=== PATIENT | male | born 1945 | race Caucasian/White ===

== ENCOUNTER 2018-06-22 10:06 | Day surgery (SDC) | payer MEDICARE, BC ==
[~2018-06-22 10:06] MED LIST: Acetaminophen TAB* 325 MG PO PRN; Buffered Lidocaine 0.9% SYRIN* 5 ML/SYR SYRINGE INTRADERM ONE
[2018-06-22] MEDS ORDERED: fentaNYL* 50 MCG/ML 2 ML VIAL (100 MCG VIAL) ONE (12:01)
[2018-06-22] MEDS ORDERED: Midazolam* 1 MG/ML 2 ML VIAL (2 MG) ONE ×2 (12:01→12:28)
[2018-06-22 13:00] VITALS: BP 149/75
[2018-06-22] MEDS ORDERED: Tetracaine 0.5% OPTH.SOL 4 ML* 1 DROP BTL ONE (13:49)
[2018-06-22] MEDS ORDERED: Cyclopentolate 1% OPTH.SOL* 2 ML BTL ONE (13:49)
[2018-06-22] MEDS ORDERED: Phenylephrine 2.5% OPTH.SOL* 2 ML BTL ONE (13:49)
[2018-06-22] MEDS ORDERED: Lidocaine 1%* 5 ML VIAL ONE (13:49)
[2018-06-22] MEDS ORDERED: Ketorolac 0.5% OPHTH (NF) 0.5 % 5 ML BTL ONE (13:49)
[2018-06-22] MEDS ORDERED: Neomycin/Polymy/Dex OPHTH.OIN* 3.5 GM ONE (13:49)
[2018-06-22] MEDS ORDERED: Tropicamide 1% OPTH.SOL* BTL ONE (13:49)
--- NOTE | 2018-06-23 04:19 | OP ---
DATE OF OPERATION: 06/22/18 - [facility] DATE OF : 49 SURGEON: Jared Murray MD SURVEYING CREW RODMAN: None. ANESTHESIA: Topical with intravenous sedation. PRE-OP DIAGNOSES: Cataract and glaucoma, right eye. POST-OP DIAGNOSES: Cataract and glaucoma, right eye. OPERATIVE PROCEDURE: Phacoemulsification, cataract extraction with posterior chamber intraocular lens implant and iStent implant, right eye. COMPLICATIONS: None. BLOOD LOSS: None. DESCRIPTION OF PROCEDURE: The patient was brought to the operating room and received intravenous sedation. A drop of tetracaine was placed in his right eye. The patient was prepped and draped in the usual sterile fashion for ophthalmic surgery and attention was directed to the right eye, where a speculum was placed. A paracentesis was created at the 11 o'clock position and 0.1 cc of 1% preservative- free lidocaine was injected into the anterior chamber followed by DisCoVisc. The eye was digitally stabilized while a 2.75-mm keratome was used to create a triplanar clear corneal incision at the 9 o'clock position. A continuous curvilinear capsulorrhexis was created with a cystotomy and Utrata forceps. BSS on a cannula was used to hydrodissect the lens from the capsule. Phacoemulsification was performed in a immewr-hfk-eakyosv technique to create four fragments, which were removed. Residual cortical material was removed with irrigation and aspiration. DisCoVisc was used to inflate the capsular bag. An AU00T0 17.5 diopter lens was inserted into the capsular bag. Supplemental DisCoVisc was used to deepen the anterior chamber and coat the surface of the cornea. The patient's head was rotated away from the surgeon and the microscope was rotated toward the surgeon. A gonioprism was placed on the surface of the eye. An iStent inject and channel worker was introduced into the anterior chamber. Under direct visualization, the iStent inject was placed at the 2 o'clock and 4 o'clock positions. The channel worker and the gonioprism were removed. The patient's head and the microscope were returned to a neutral position. DisCoVisc was removed using irrigation and aspiration. BSS on a cannula was used to hydrate the corneal stroma and seal the wound. At the end of the case, the pupil was round. The lens was centered and stable. The iStent appeared in good position. The eye pressure appeared normal and the wound was watertight. The speculum was removed and topical Maxitrol ointment was placed on the surface of the eye. The eye was closed, patched, and shielded and the patient was sent to recovery room in stable condition with postoperative instructions and followup appointment given. [id number]/[facility] #: [id number] ASHISH
== END 2018-06-22 13:13 | disposition home or self-care (01) ==
LOC: OREAST 10:06
PROVIDERS: ATTEND Ophthalmology
DX: H25.041 Posterior subcapsular polar age-related cataract, right eye (principal); H40.10X1 Unspecified open-angle glaucoma, mild stage; G47.33 Obstructive sleep apnea (adult) (pediatric); K21.9 Gastro-esophageal reflux disease without esophagitis; Z85.038 Personal history of other malignant neoplasm of large intestine; I10 Essential (primary) hypertension
CPT/HCPCS: A9270-GY; C1783; J2250; J3010; V2632

== ENCOUNTER 2018-06-29 08:37 | Day surgery (SDC) | payer MEDICARE, BC ==
[~2018-06-29 08:37] MED LIST changes: -Acetaminophen TAB* 325 MG PO PRN
[2018-06-29] MEDS ORDERED: Lidocaine 2% PF * 5 ML VIAL ONE (10:00)
[2018-06-29] MEDS ORDERED: Propofol* 10 MG/ML 20 ML BTL ONE (10:00)
[2018-06-29 10:40] VITALS: BP 143/73
[2018-06-29] MEDS ORDERED: Ketorolac 0.5% OPHTH (NF) 0.5 % 5 ML BTL ONE (12:12)
[2018-06-29] MEDS ORDERED: Tetracaine 0.5% OPTH.SOL 4 ML* 1 DROP BTL ONE (12:12)
[2018-06-29] MEDS ORDERED: Cyclopentolate 1% OPTH.SOL* 2 ML BTL ONE (12:12)
[2018-06-29] MEDS ORDERED: Tropicamide 1% OPTH.SOL* BTL ONE (12:12)
[2018-06-29] MEDS ORDERED: Lidocaine 1%* 5 ML VIAL ONE (12:12)
[2018-06-29] MEDS ORDERED: Phenylephrine 2.5% OPTH.SOL* 2 ML BTL ONE (12:12)
[2018-06-29] MEDS ORDERED: Neomycin/Polymy/Dex OPHTH.OIN* 3.5 GM ONE (12:12)
--- NOTE | 2018-06-30 06:18 | OP ---
DATE OF OPERATION: 06/29/18 - [facility] OF : 49 SURGEON: Jared Murray MD. CLINICAL ADMISSIONS MANAGER: None. ANESTHESIA: Topical with intravenous sedation PRE-OP DIAGNOSIS: Cataract and glaucoma, left eye. POST-OP DIAGNOSIS: Cataract and glaucoma, left eye. OPERATIVE PROCEDURE: Phacoemulsification cataract extraction with posterior chamber intraocular lens implant and iStent implant, left eye. COMPLICATIONS: None. BLOOD LOSS: None. DESCRIPTION OF PROCEDURE: The patient was brought to the operating room and received intravenous sedation. A drop of tetracaine was placed in his left eye. The patient was prepped and draped in usual sterile fashion for ophthalmic surgery and attention was directed to the left eye, where a speculum was placed. A paracentesis was created at the 5 o'clock position and 0.1 cc of 1% preservative-free lidocaine was injected into the anterior chamber followed by DisCoVisc. The eye was digitally stabilized while a 2.75 mm keratome was used to create a triplanar clear corneal incision at the 3 o'clock position. A continuous curvilinear capsulorrhexis was created with a cystotome and Utrata forceps. BSS on a cannula was used to hydrodissect the lens in the capsule. Phacoemulsification was performed in a ubfmog-sjx-spkwdxz technique to create 4 fragments which were removed. Residual cortical material was removed with irrigation and aspiration. DisCoVisc was used to inflate the capsular bag. An AU00T0 17.5 diopter lens was inserted into the capsular bag. Supplemental DisCoVisc was used to inflate the anterior chamber as well as to coat the surface of the cornea. The patient's head was rotated away from the surgeon and the microscope was rotated towards the surgeon. A gonioprism was placed on the surface of the eye. An iStent inject javascript web developer was introduced into the anterior chamber. Under direct visualization an iStent was placed at the 8 o'clock and then 10 o'clock position. The javascript web developer and gonioprism were removed. The patient 's head and microscope were returned to a neutral position. Irrigation and aspiration were used to remove the DisCoVisc from the eye. BSS on a cannula was used to hydrate the corneal stroma and seal the wound. At the end of the case, the pupil was round. The lens was centered and stable. The iStents were in position. The eye pressure appeared normal and the wound was watertight. Topical Maxitrol ointment was placed on the surface of the eye after the speculum was removed. The eye was closed, patched, and shielded. The patient was sent to recovery room in stable condition with postoperative instructions and followup appointment given. [id number]/[facility] #: [id number] ASHISH
== END 2018-06-29 10:46 | disposition home or self-care (01) ==
LOC: OREAST 08:37
PROVIDERS: ATTEND Ophthalmology
DX: H25.12 Age-related nuclear cataract, left eye (principal); H40.1121 Primary open-angle glaucoma, left eye, mild stage; G47.33 Obstructive sleep apnea (adult) (pediatric); K21.9 Gastro-esophageal reflux disease without esophagitis; I10 Essential (primary) hypertension; Z85.038 Personal history of other malignant neoplasm of large intestine
CPT/HCPCS: A9270-GY; C1783; J2704; V2632

== ENCOUNTER 2018-08-26 09:35 | Emergency (ER) | payer MEDICARE, BC ==
--- OUTSIDE RECORDS SUMMARY | 2018-08-26 09:44 | XMS REPORT | Continuity of Care Document ---
:1945 External Reference #:[id number] Author Name Florence Tineo Care Team Providers Name Role Phone Bernard Ley MD Care Team Information Clinical Appeals Reviewer Unavailable Bernard Ley MD Primary Care Physician Unavailable Payers Type Date Identification Numbers Payment Provider Subscriber Policy Number: [id number] Medicare [place] Escoto PayID: [id number] [address] [place] [address] Policy Number: [id number] [employer] Grace Escoto PayID: [id number] [address] [place] [address] Advance Directives Description No Information Available Problems Date Description Provider Status Onset: 03/13/2017 Combined form of senile cataract Jared Murray M.D. Active Onset: 03/13/2017 Myopia Jared Murray M.D. Active Onset: 03/13/2017 Vitreous degeneration Jared Murray M.D. Active Family History Date Family Member(s) Problem(s) Comments General Arthritis General Cancer General Diabetes General High BP General Sister Father Cancer Mother Cataract Mother Alzheimer's Disease Mother Arthritis Mother Cerebrovascular Accident Mother High BP Social History Type Date Description Comments Sex Unknown ETOH Use Rarely consumes alcohol Tobacco Use Start: Unknown Patient has never smoked Smoking Status Reviewed: 08/06/18 Patient has never smoked Allergies, Adverse Reactions, Alerts Date Description Reaction Status Severity Comments 03/13/2017 Meperidine Active 03/13/2017 Sulfamethoxazole / Trimethoprim Active 03/13/2017 Levofloxacin Active Medications Medication Date Status Form Strength Qnty SIG Indications Ordering Provider Pantoprazole Active Solution Rec 40mg Unknown Sodium 000 Avodart Active Capsules 0.5mg Unknown 000 Simvastatin Active Tablets 20mg Unknown [address] Adult Active Tablets DR 81mg take one Unknown Low Strength 000 capsule/ tablet daily by mouth Probiotic Active Capsules as Unknown 000 needed Tobramycin Hx Solution 0.3% 10ml 1 drop Jared 018 - drops Terri, right M.D. 018 eye four times a day Ketorolac Hx Solution 0.5% 10ml 1 drops Jared Tromethamine 018 - right Terri, eye M.D. 019 twice a day Pred Forte Hx Suspension 1% 10ml 1 drops Jared 018 - right Terri, eye four M.D. 019 times a day Budesonide Hx Suspension 1mg/2ML Unknown 000 - 018 Claritin Hx Capsules 10mg use 1 by Unknown 000 - mouth q.d prn 018 Immunizations Description No Information Available Vital Signs Date Vital Result Comment 08/06/2018 9:42am Intraocular Pressure Right Eye 17 mmHg Intraocular Pressure Left Eye 18 mmHg 07/06/2018 10:29am Intraocular Pressure Right Eye 19 mmHg Intraocular Pressure Left Eye 19 mmHg 06/30/2018 8:35am Intraocular Pressure Right Eye 20 mmHg Intraocular Pressure Left Eye 25 mmHg 06/23/2018 9:48am Intraocular Pressure Right Eye 22 mmHg 06/18/2018 2:49pm Intraocular Pressure Right Eye 27 mmHg Intraocular Pressure Left Eye 27 mmHg 05/31/2018 10:59am Intraocular Pressure Right Eye 26 mmHg Intraocular Pressure Left Eye 26 mmHg 04/07/2018 10:57am Intraocular Pressure Right Eye 24 mmHg Intraocular Pressure Left Eye 24 mmHg Cornea Thickness Left Eye 552 m Cornea Thickness Right Eye 548 m Pachymetry adjusted IOP Right Eye 0 Pachymetry adjusted IOP Left Eye 0 03/13/2017 10:34am Intraocular Pressure Right Eye 18 mmHg tonopen Intraocular Pressure Left Eye 17 mmHg Results Description No Information Available Procedures Date Code Description Status 06/29/2018 07397 Extracapsular Cataract Extraction W/Intraocular Lens Completed 06/29/2018 0474T Insertion Of Anterior Segment Aqueous Drainage Device Completed 06/22/2018 79287 Extracapsular Cataract Extraction W/Intraocular Lens Completed 06/22/2018 0191T Insertion Of Anterior Segment Aqueous Drainage Device Completed 06/18/2018 89983 Oct, Optic Nerve Completed 06/18/2018 32969 Visual Field Exam Extended, Unilateral Or Bilateral Completed 06/18/2018 84819 Eye Exam Est Intermediate Completed 05/31/2018 80640 Ophthalmic Biometry By Partial Coherence Interferometry Completed W/Intra 05/31/2018 59631 Eye Exam Est Intermediate Completed 04/07/2018 21098 Fundus Photography W/Interpretation & Report Completed 04/07/2018 38781 Eye Exam Est Comprehensive Completed 04/07/2018 22793 Corneal Pachymetry, Unilateral/Bilateral Completed 03/13/2017 52488 Ophthalmoscopy Initial Completed 03/13/2017 76614 Refraction Completed 03/13/2017 17768 Eye Exam New Intermediate Completed Encounters Description No Information Available Plan of Treatment 08/06/2018 - Andres Shrestha, [id number] Primary open-angle glaucoma, bilateral, mild [id number] Presence of intraocular lensFollow up:3 mos IOP
[2018-08-26] MEDS ORDERED: HYDROmorphone INJ1* 1 MG/ML SYRINGE IV SLOW PU ONE (10:20)
[2018-08-26] MEDS ORDERED: Ondansetron INJ* 2 MG/ML VIAL IV ONE (10:20)
[2018-08-26] MEDS ORDERED: LORazepam INJ* 2 MG/ML 1 ML VIAL IV ONE (10:51)
--- NOTE | 2018-08-26 10:56 | ED ---
Lower Extremity - HPI Summary HPI Summary: This patient is a 73 year old male brought in by EMS to [facility] after he hyperextending his knee this morning. Pt states he was walking down his driveway when he hyperextended his left knee and heard a pop, causing him to fall to the ground. He states he has kept his knee in 90 degree flexion since and has it bound to a straight object currently. The patient was given zofran and fentanyl by EMS with relief. He reports the pain 10 currently. He has had prior meniscus repair on this knee. He denies any other injuries with his fall and states it was a soft controlled fall. - History of Current Complaint Chief Complaint: EDExtremityLower Stated Complaint: FELL/KNEE INJURY Time Seen by Provider: 08/26/18 10:05 Hx Obtained From: Patient Mechanism Of Injury: Other - hyperextended Onset of Pain: Immediate Onset/Duration: Still Present Severity Initially: Severe Severity Currently: Moderate Pain Intensity: 7 Pain Scale Used: 0-10 Numeric Timing: Constant Location: Is Discrete @ - LLE Associated Signs And Symptoms: Positive: Knee Pain. Negative: Fever Aggravating Factor(s): Movement Able to Bear Weight: No - Allergies/Home Medications Allergies/Adverse Reactions: Allergies Allergy/AdvReac Type Severity Reaction Status Date / Time fexofenadine Allergy took taste Verified 08/26/18 09:59 away Sulfa (Sulfonamide Allergy Rash Verified 08/26/18 09:59 Antibiotics) sulfamethoxazole Allergy Rash Verified 08/26/18 09:59 [From Septra] trimethoprim [From Septra] Allergy Rash Verified 08/26/18 09:59 meperidine [From Demerol] AdvReac Nausea Verified 08/26/18 09:59 Home Medications: Home Medications Finasteride TAB* [Proscar TAB*] 5 mg PO BEDTIME 08/26/18 [History Confirmed ] PMH/Surg Hx/FS Hx/Imm Hx Endocrine/Hematology History: Denies: Hx Diabetes Cardiovascular History: Reports: Hx Hypertension Denies: Hx Cardiomegaly, Hx Coronary Artery Disease, Hx Hypercholesterolemia , Hx Pacemaker/ICD Respiratory History: Reports: Hx Sleep Apnea Denies: Hx Chronic Obstructive Pulmonary Disease (COPD) GI History: Reports: Hx Gastroesophageal Reflux Disease, Other GI Disorders - HX OF DIVERTICULOSIS History: Reports: Hx Benign Prostatic Hyperplasia Musculoskeletal History: Reports: Other Musculoskeletal History - LEFT SHOULDER FRACTURE-2016, HX OF LIMITED STRENGTH IN SHOULDERS Sensory History: Reports: Hx Cataracts - BILATERAL, Hx Contacts or Glasses - GLASSES Denies: Hx Hearing Aid Opthamlomology History: Reports: Hx Cataracts - BILATERAL, Hx Contacts or Glasses - GLASSES Psychiatric History: Denies: Hx Panic Disorder - Cancer History Cancer Type, Location and Year: colon cancer 2003 Hx Chemotherapy: No Hx Radiation Therapy: No - Surgical History Surgery Procedure, Year, and Place: 3 rectal abcess, right knee, left eye laser surgery, colon removal for cancer Hx Anesthesia Reactions: No Infectious Disease History: No Infectious Disease History: Denies: Traveled Outside the [place] in Last 30 Days - Family History Known Family History: Positive: Diabetes Negative: Seizure Disorder - Social History Alcohol Use: None Substance Use Type: Reports: None Hx Tobacco Use: No Smoking Status (MU): Never Smoked Tobacco Have You Smoked in the Last Year: No Review of Systems Negative: Fever Positive: Other - Left knee pain Negative: Slurred Speech All Other Systems Reviewed And Are Negative: Yes Physical Exam - Summary Physical Exam Summary: Appearance: The patient is well-nourished in no acute distress and in no acute pain. Skin: The skin is warm and dry and skin color reflects adequate perfusion. HEENT: The head is normocephalic and atraumatic. The pupils are equal and reactive. The conjunctivae are clear and without drainage. Nares are patent and without drainage. Mouth reveals moist mucous membranes and the throat is without erythema and exudate. The external ears are intact. The ear canals are patent and without drainage. The tympanic membranes are intact. Neck: The neck is supple with full range of motion and non-tender. There are no carotid bruits. There is no neck vein distension. Respiratory: Chest is non-tender. Lungs are clear to auscultation and breath sounds are symmetrical and equal. Cardiovascular: Heart is regular rate and rhythm. There is no murmur or rub auscultated. There is no peripheral edema and pulses are symmetrical and equal. Abdomen: The abdomen is soft and non-tender. There are normal bowel sounds heard in all four quadrants and there is no organomegaly palpated. Musculoskeletal: There is no back tenderness noted.. There is good capillary refill. There is no peripheral edema or calf tenderness elicited. The left knee is tender to ROM and there is a visible deformity. LLE is neurovascularly intact distally. Neurological: Patient is alert and oriented to person, place and time. The patient has symmetrical motor strength in all four extremities. Cranial nerves are grossly intact. Deep tendon reflexes are symmetrical and equal in all four extremities. Psychiatric: The patient has an appropriate affect and does not exhibit any anxiety or depression. Triage Information Reviewed: Yes Vital Signs On Initial Exam: Initial Vitals Temp Pulse Resp BP Pulse Ox 97.9 F 71 20 201/101 100 08/26/18 09:37 08/26/18 09:37 08/26/18 09:37 08/26/18 09:37 08/26/18 09:37 Vital Signs Reviewed: Yes Procedures - Procedure Summary Procedure Summary: The patella was reduced without difficulty, procedure was well tolerated. Diagnostics - Vital Signs Vital Signs Temp Pulse Resp BP Pulse Ox 08/26/18 10:26 21 08/26/18 10:20 63 199/101 100 08/26/18 10:00 63 100 08/26/18 09:50 65 218/102 100 08/26/18 09:49 65 100 08/26/18 09:37 97.9 F 71 20 201/101 100 - Laboratory Lab Statement: Any lab studies that have been ordered have been reviewed, and results considered in the medical decision making process. - Radiology Knee xray Radiology Interpretation Completed By: Radiologist Summary of Radiographic Findings: NO ACUTE OSSEOUS INJURY. IF SYMPTOMS PERSIST, RECOMMEND REPEAT IMAGING. Lower Extremity Course/Dx - Course Course Of Treatment: Mr. Escoto presented to the ED after hyperestending his left knee. He is complaining of severe pain with any attempt to move his knee and it is immobilized at 90 on arrival. Distal neurovascular and motor are intact. He is tender to palpation and there is a deformity laterally. X-rays obtained without change in position and is difficult to interpret secondary to positioning. I initially thought that he likely had a patellar dislocation laterally but I'm not certain of that after the x-ray. His vital signs remain stable and he was given pain medication and muscle relaxer in the form of Ativan. At that point a standard reduction procedure was was performed for patellar dislocation. His leg was gradually extended and the deformity resolved. It's unclear whether it was dislocated and relocated or not. He is unable to lift his straight leg up off the bed after the procedure. He clearly has a torn superior patellar tendon. He is immobilized and placed on crutches and Dr. Lance will see him at 8 AM tomorrow morning. He may need an MRI scan. The reduction procedure was performed by Shaila Ayala my supervision. - Diagnoses Provider Diagnoses: Dislocation of right patella Discharge - Sign-Out/Discharge Documenting (check all that apply): Patient Departure - Discharge Plan Condition: Stable Disposition: HOME Prescriptions: HYDROcodone/ACETAMIN 5-325 MG* [[place] 5-325 TAB*] 1 tab PO Q6H PRN #20 tab MDD 4 PRN Reason: Pain Ondansetron ODT TAB* [Zofran Odt TAB*] 4 mg PO Q6H PRN #20 tab.odt PRN Reason: Nausea/Vomiting Patient Education Materials: Patellar Dislocation (ED) Referrals: Yolanda Lance MD [Medical Doctor] - 2 Days Additional Instructions: Take ibuprofen as needed for pain. RETURN TO THE EMERGENCY DEPARTMENT FOR CHANGING OR WORSENING SYMPTOMS - Billing Disposition and Condition Condition: STABLE Disposition: Home - Attestation Statements Document Initiated by Scribe: Yes Documenting Scribe: Jeff Miller Provider For Whom Scribe is Documenting (Include Credential): Travis Rand MD Scribe Attestation: I, Jeff Miller , scribed for Travis Rand MD on 08/26/18 at 1447. Scribe Documentation Reviewed: Yes Provider Attestation: The documentation as recorded by the Jeff hernandez accurately reflects the service I personally performed and the decisions made by me, Travis Rand MD Status of Scribe Document: Viewed
[2018-08-26 12:37] VITALS: BP 176/85
--- NOTE | 2018-08-26 21:35 | CONS ---
CONSULTATION REPORT: DATE OF CONSULT: 08/26/18 - EMERGENCY DEPT ATTENDING ORTHOPEDIC PROVIDER: Dr. Yolanda Lance. LOCATION OF CONSULTATION: Emergency room. CHIEF COMPLAINT: Left knee pain. HISTORY OF PRESENT ILLNESS: Mr. Escoto is a 73-year-old male, who was brought in by EMS to [facility] after hyperextending his knee this morning while walking down his driveway. He states that he heard a pop causing him to fall to the ground. He has kept his knee in 90 degrees of flexion since this happened. Upon arrival to the emergency room, his pain was 7/10. He states that he did not have any other injuries with this fall. He did not hit his head. He did lie on the ground without straining his leg after the fall. At this time, he continues to have significant pain of the left knee without any numbness or tingling distally. PAST SURGICAL HISTORY: Does include a left meniscal repair. HOME MEDICATIONS: 1. Probiotic. 2. Famotidine 40 mg. 3. Simvastatin 20 mg. 4. Finasteride 5 mg p.o. at bedtime. ALLERGIES: FEXOFENADINE, SULFAMETHOXAZOLE, TRIMETHOPRIM, and MEPERIDINE. FAMILY HISTORY: Noncontributory. SOCIAL HISTORY: No alcohol use. Does not smoke. REVIEW OF SYSTEMS: General: Negative for fever or report of current illness. HEENT: Negative for any head trauma. Musculoskeletal: Positive for left knee pain. Negative for any pain of any other joint or extremity. Neuro: Negative for any decreased sensation distal to the injury. Skin: Negative for any skin breakdown, abrasion, or lacerations from the fall. PHYSICAL EXAM: Vital Signs: Temperature 97.3, pulse rate 83, respiratory rate 21, oxygen saturation 93%, blood pressure 176/85. Appearance: Well appearing, does appear to be in acute pain of his left knee. He is lying in the emergency room on the stretcher. HEENT: Head is normocephalic, atraumatic. Respiratory : Regular rate and effort of breathing. Cardiovascular: DP pulse is 2+, left lower extremity. Capillary refill less than 2 seconds distally. Musculoskeletal: Bilateral upper extremities and contralateral lower extremities with skin envelope intact. No tenderness to gentle palpation. Moves bilateral upper extremities and contralateral lower extremities well without any pain. Left lower extremity, able to move at the hip, ankle, and MTPs without any pain. There is no tenderness of the hip, ankle, or foot. He is globally tender about the knee. There is obvious deformity of the patella, which was lying laterally. The patient holds the knee at 90 degrees of flexion. The patella was reduced with Dr. Rand as well by gently extending the leg after the patient had been given Ativan as well as Dilaudid. He tolerated the procedure well. The patella was effectively reduced. Medial portion of the quadriceps tendon is palpably soft with a fusion over this area. The patient is unable to produce straight leg raise. He is able to bend his knee by heel sliding in the bed as well as extended by heel sliding in the bed. Post reduction, he has guarding with any lateral deviation of the patella, but the patella does remain located. The patient is neurovascularly intact, status post reduction distally. ASSESSMENT: Left patellar dislocation. PLAN: The patient will be placed in an immobilizer. He will be given crutches. He has an appointment with Dr. Lance on 08/27/18 at 8 a.m. He is aware. MAHOGANY MARTIN [id number]/[facility] #: [id number]
== END 2018-08-26 12:36 | disposition home or self-care (01) ==
LOC: ED 09:35
DX: S83.005A Unspecified dislocation of left patella, initial encounter (principal); W19.XXXA Unspecified fall, initial encounter; Y93.01 Activity, walking, marching and hiking; Y92.093 Driveway of other non-institutional residence as the place of occurrence of the external cause; Z88.2 Allergy status to sulfonamides; I10 Essential (primary) hypertension; G47.30 Sleep apnea, unspecified; Z85.038 Personal history of other malignant neoplasm of large intestine; N40.0 Benign prostatic hyperplasia without lower urinary tract symptoms
CPT/HCPCS: 27560; 96374; 96375; 99284; J1170; J2060; J2405

== ENCOUNTER 2019-05-10 18:59 | Emergency (ER) | payer MEDICARE, BC, OTHER ==
[2019-05-10 19:40] LABS: Urine Appearance Clear; Urine Bilirubin Negative (Negative); Urine Blood Negative (Negative); Urine Color Straw; Urine Glucose Negative (Negative); Urine Ketones Negative (Negative); Urine Nitrite Negative (Negative); Urine Protein Negative (Negative); Urine Specific Gravity 1.004 (1.010-1.030); Urine Urobilinogen Negative (Negative)
[2019-05-10 19:46] LABS: ABS Basophils 0.1 10^3/ul (0-0.2); ABS Eosinophils 0.1 10^3/ul (0-0.6); ABS Monocytes 0.6 10^3/ul (0-0.8); ABS Neutrophils 6.8 10^3/ul (1.5-7.7); Eosinophil % 1.3 %; Hematocrit 34 % (42-52); Hemoglobin 11.9 g/dL (14.0-18.0); Lymphocyte % 20.5 %; Mean Corpuscular HGB Conc 35 g/dL (31-36); Mean Corpuscular Hemoglobin 31 pg (27-31); Mean Corpuscular Volume 89 fL (80-94); Mean Platelet Volume 8.3 fL (7.4-10.4); Platelet Count 195 10^3/uL (150-450); Red Blood Count 3.83 10^6 /uL (4.18-5.48); Red Cell Distribution Width 13 % (10-15); White Blood Count 9.7 10^3/uL (3.5-10.8)
[2019-05-10] MEDS: Acetaminophen TAB* 325 MG PO ONE (19:54)
[2019-05-10] MEDS: Ketorolac INJ* 30 MG/ML 1 ML VIAL IM ONE (20:01)
[2019-05-10 20:04] LABS: Albumin/Globulin Ratio 1.3 (1-3); BUN/Creatinine Ratio 16.3 (8-20); Calcium 9.4 mg/dL (8.6-10.3); EGFR African American 84.9 (>60); EGFR Non-African American 70.2 (>60); Globulin 3.1 g/dL (2-4); Total Bilirubin 0.5 mg/dL (0.2-1.0); Total Protein 7.1 g/dL (6.4-8.9)
--- OUTSIDE RECORDS SUMMARY | 2019-05-10 20:04 | XMS REPORT | Continuity of Care Document ---
:1945 External Reference #:[id number] Author Name Jared Murray M.D. Address [address] [place] [address] Care Team Providers Name Role Phone Bernard Ley MD - [facility] Care Team Information Process Improvement Specialist [phone] [facility] Care Team Information Process Improvement Specialist Problems Active Problems Provider Date Combined form of senile cataract Jared Murray M.D. Onset: 03/13/2017 Myopia Jared Murray M.D. Onset: 03/13/2017 Vitreous degeneration Jared Murray M.D. Onset: 03/13/2017 Social History Type Date Description Comments Sex Unknown ETOH Use Rarely consumes alcohol Tobacco Use Start: Unknown Patient has never smoked Smoking Status Reviewed: 04/14/19 Patient has never smoked Allergies, Adverse Reactions, Alerts Active Allergies Reaction Severity Comments Date Meperidine 03/13/2017 Sulfamethoxazole / Trimethoprim 03/13/2017 Levofloxacin 03/13/2017 Medications Active Medications SIG Qnty Indications Ordering Provider Date Pantoprazole Sodium Unknown 40mg Solution Rec Avodart Unknown 0.5mg Capsules Simvastatin Unknown 20mg Tablets Probiotic as needed Unknown Capsules Immunizations Description No Information Available Vital Signs Date Vital Result Comment 04/14/2019 9:32am Intraocular Pressure Right Eye 17 mmHg Intraocular Pressure Left Eye 17 mmHg 11/04/2018 9:31am Intraocular Pressure Right Eye 17 mmHg Intraocular Pressure Left Eye 17 mmHg Results Description No Information Available Procedures Date Code Description Status 04/14/2019 99459 Fundus Photography W/Interpretation & Report Completed 04/14/2019 69564 Ophthalmoscopy Subsequent Completed 04/14/2019 75766 Eye Exam Est Comprehensive Completed 11/04/2018 80152 Eye Exam Est Intermediate Completed Medical Devices Description No Information Available Encounters Description No Information Available Assessments Date Code Description Provider 04/14/2019 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 stage 04/14/2019 Z96.1 Presence of intraocular lens Jared Murray M.D. 04/14/2019 H43.813 Vitreous degeneration, bilateral Jared Murray M.D. 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
--- NOTE | 2019-05-10 20:23 | ED ---
Back Pain - HPI Summary HPI Summary: Pt is a 74 y/o M presenting to the ED brought in by EMS for R-sided lower back pain initially onset this past afternoon. He states he has had a couple of episodes of R lower back pain over the past few days, but today around 1500 the pain became suddenly severe. He was shaking and having trouble moving, which is why EMS was called. He denies falls or recent trauma, and notes hx of knee surgery and recent tight hamstrings. He took 800mg IBU at 0830 this date as well as one Tylenol at 1500. He denies fever, chills, N/V/D, blood in stool, dysuria, hematuria, or testicular pain. - History of Current Complaint Chief Complaint: EDBackInjuryPain Stated Complaint: BACK PAIN PER EMS Time Seen by Provider: 05/10/19 19:07 Hx Obtained From: Patient Onset/Duration: Sudden Onset, Lasting Hours, Still Present Onset/Duration: Started Hours Ago, Still Present Timing: Constant, Lasting Hours Back Pain Location: Is Discrete @ - R lower back Severity Initially: Moderate Severity Currently: Severe Pain Intensity: 8 Pain Scale Used: 0-10 Numeric Aggravating Symptom(s): Nothing Alleviating Symptom(s): Nothing Associated Signs And Symptoms: Negative: Fever - Allergies/Home Medications Allergies/Adverse Reactions: Allergies Allergy/AdvReac Type Severity Reaction Status Date / Time fexofenadine Allergy took taste Verified 09/02/18 08:33 away Sulfa (Sulfonamide Allergy Rash Verified 09/02/18 08:33 Antibiotics) sulfamethoxazole Allergy Rash Verified 09/02/18 08:33 [From Septra] trimethoprim [From Septra] Allergy Rash Verified 09/02/18 08:33 meperidine [From Demerol] AdvReac Nausea Verified 09/02/18 08:33 PMH/Surg Hx/FS Hx/Imm Hx Previously Healthy: Yes Endocrine/Hematology History: Denies: Hx Diabetes Cardiovascular History: Reports: Hx Hypertension - no meds Denies: Hx Cardiomegaly, Hx Coronary Artery Disease, Hx Hypercholesterolemia , Hx Pacemaker/ICD, Other Cardiovascular Problems/Disorders Respiratory History: Reports: Hx Sleep Apnea Denies: Hx Chronic Obstructive Pulmonary Disease (COPD), Other Respiratory Problems/Disorders GI History: Reports: Hx Gastroesophageal Reflux Disease, Other GI Disorders - HX OF DIVERTICULOSIS Denies: Hx Ulcer History: Reports: Hx Benign Prostatic Hyperplasia Denies: Hx Kidney Stones, Hx Renal Disease Musculoskeletal History: Reports: Hx Arthritis - back, Other Musculoskeletal History - LEFT SHOULDER FRACTURE-2016, HX OF LIMITED STRENGTH IN SHOULDERS Sensory History: Reports: Hx Cataracts - polo, Hx Contacts or Glasses - glasses Denies: Hx Hearing Aid Opthamlomology History: Reports: Hx Cataracts - polo, Hx Contacts or Glasses - glasses Neurological History: Denies: Other Neuro Impairments/Disorders Psychiatric History: Denies: Hx Panic Disorder - Cancer History Cancer Type, Location and Year: colon cancer 2002 Hx Chemotherapy: No Hx Radiation Therapy: No - Surgical History Surgery Procedure, Year, and Place: 3 rectal abcess,. right knee,. left eye laser surgery,2011. colon removal for cancer 2002. CATARACT SURGERY BILATERAL EYES-EYE STENT INJECT-WILL BRING CARDS TO BE COPIED-UPT TO 3T OR LESS-4000 GCM Hx Anesthesia Reactions: Yes - slow to wake up Infectious Disease History: No Infectious Disease History: Denies: Traveled Outside the [place] in Last 30 Days - Family History Known Family History: Positive: Diabetes, Other - sister and father - kidney stones Negative: Seizure Disorder - Social History Alcohol Use: None Hx Substance Use: No Substance Use Type: Reports: None Hx Tobacco Use: No Smoking Status (MU): Never Smoked Tobacco Have You Smoked in the Last Year: No Review of Systems Positive: Other - shaking . Negative: Fever, Chills Negative: Vomiting, Diarrhea, Nausea, Other - blood in stool Negative: dysuria, hematuria, pain - testicular pain Positive: Myalgia - R lower back pain All Other Systems Reviewed And Are Negative: Yes Physical Exam - Summary Physical Exam Summary: Constitutional: Well-developed, Well-nourished, Alert. (-) Distressed Skin: Warm, Dry HENT: Normocephalic; Atraumatic Eyes: Conjunctiva normal Neck: Musculoskeletal ROM normal neck. (-) JVD, (-) Stridor, (-) Tracheal deviation Cardio: Rhythm regular, rate normal, Heart sounds normal; Intact distal pulses; Radial pulses are 2+ and symmetric. (-) Murmur Pulmonary/Chest wall: Effort normal. (-) Respiratory distress, (-) Wheezes, (-) Rales Abd: Soft, (-) tenderness, (-) Distension, (-) Guarding, (-) Rebound Musculoskeletal: (-) Edema Lymph: (-) Cervical adenopathy Neuro: Alert, Oriented x3 Psych: Mood and affect Normal Triage Information Reviewed: Yes Vital Signs On Initial Exam: Initial Vitals Temp Pulse Resp BP Pulse Ox 98.8 F 61 22 208/71 99 05/10/19 19:02 05/10/19 19:02 05/10/19 19:02 05/10/19 19:02 05/10/19 19:02 Vital Signs Reviewed: Yes Procedures - Sedation Patient Received Moderate/Deep Sedation with Procedure: No Diagnostics - Vital Signs Vital Signs Temp Pulse Resp BP Pulse Ox 05/10/19 19:34 55 198/63 99 05/10/19 19:30 63 99 05/10/19 19:04 64 208/71 100 05/10/19 19:02 98.8 F 61 22 208/71 99 - Laboratory Lab Results: Lab Results 05/10/19 05/10/19 05/10/19 Range/Units 19:31 19:39 19:39 WBC 9.7 (3.5-10.8) 10^3/uL RBC 3.83 L (4.18-5.48) 10^6 /uL Hgb 11.9 L (14.0-18.0) g/dL Hct 34 L (42-52) % MCV 89 (80-94) fL MCH 31 (27-31) pg MCHC 35 (31-36) g/dL RDW 13 (10-15) % Plt Count 195 (150-450) 10^3/uL MPV 8.3 (7.4-10.4) fL Neut % (Auto) 70.8 % Lymph % (Auto) 20.5 % [place] % (Auto) 6.3 % Eos % (Auto) 1.3 % Baso % (Auto) 1.1 % Absolute Neuts (auto) 6.8 (1.5-7.7) 10^3/ul Absolute Lymphs (auto) 2.0 (1.0-4.8) 10^3/ul Absolute Monos (auto) 0.6 (0-0.8) 10^3/ul Absolute Eos (auto) 0.1 (0-0.6) 10^3/ul Absolute Basos (auto) 0.1 (0-0.2) 10^3/ul Absolute Nucleated RBC 0.0 10^3/ul Nucleated RBC % 0.0 Sodium 138 (135-145) mmol/L Potassium 4.0 (3.5-5.0) mmol/L Chloride 105 (101-111) mmol/L Carbon Dioxide 26 (22-32) mmol/L Anion Gap 7 (2-11) mmol/L BUN 17 (6-24) mg/dL Creatinine 1.04 (0.67-1.17) mg/dL Est GFR ( Amer) 84.9 (>60) Est GFR (Non-Af Amer) 70.2 (>60) BUN/Creatinine Ratio 16.3 (8-20) Glucose 94 (70-100) mg/dL Calcium 9.4 (8.6-10.3) mg/dL Total Bilirubin 0.50 (0.2-1.0) mg/dL AST 16 (13-39) U/L ALT 24 (7-52) U/L Alkaline Phosphatase 49 (34-104) U/L Total Protein 7.1 (6.4-8.9) g/dL Albumin 4.0 (3.2-5.2) g/dL Globulin 3.1 (2-4) g/dL Albumin/Globulin Ratio 1.3 (1-3) Urine Color Straw Urine Appearance Clear Urine pH 8.0 (5-9) Ur Specific [place] 1.004 L (1.010-1.030) Urine Protein Negative (Negative) Urine Ketones Negative (Negative) Urine Blood Negative (Negative) Urine Nitrate Negative (Negative) Urine Bilirubin Negative (Negative) Urine Urobilinogen Negative (Negative) Ur Leukocyte Esterase Negative (Negative) Urine Glucose Negative (Negative) Result Diagrams: 05/10/19 19:39 05/10/19 19:39 Lab Statement: Any lab studies that have been ordered have been reviewed, and results considered in the medical decision making process. - CT CT a/p CT Interpretation Completed By: Radiologist Summary of CT Findings: 1. Distal rectal anastomosis. 2. Otherwise negative CT abdomen/pelvis. No renal or ureteral calculi are evident and there is no evidence of obstructive uropathy. ED physician has reviewed this report. - EKG 1945 Cardiac Rate: Bradycardia - 58bpm EKG Rhythm: Sinus Bradycardia ST Segment: Non-Specific Ectopy: None Summary of EKG Findings: EKG at 1945 shows sinus bradycardia at 58bpm with T- wave inversions in v4-v6. There is a biphasic T wave in v3. ED physician has interpreted and reviewed this EKG. Back Pain Course/Dx - Course Course Of Treatment: Patient is here with periodic right flank pain gets worse with movement. Patient was hypertensive upon arrival. Patient had a CT scan which showed no evidence of nephrolithiasis or AAA. Patient had blood work which was grossly unremarkable. Patient had a negative UA. Patient is hypertensive at the level that he was today every time he's been in the hospital per chart review. Patient had symptom improvement with NSAID and Tylenol. Patient is likely suffering from muscle spasm and was educated on treatment for that. - Diagnoses Provider Diagnoses: Right flank pain Discharge ED - Sign-Out/Discharge Documenting (check all that apply): Patient Departure - Discharge Plan Condition: Stable Disposition: HOME Prescriptions: Cyclobenzaprine TAB* [Flexeril 10 MG TAB*] 10 mg PO BID PRN #12 tab PRN Reason: pain severe Lidocaine PATCH 5%* [Lidoderm 5% Patch*] 1 patch TRANSDERM DAILY 5 Days #5 patch Patient Education Materials: Flank Pain (ED) Referrals: Bernard Ley MD [Primary Care Provider] - Additional Instructions: Use the lidocaine patches as needed for the pain to the area. You can also take 1,000mg of Tylenol every 6 hours to help alleviate the pain, and use a heating pad to the area. Follow up with your primary care provider within the next 1-3 days. Have them re -check your Hemoglobin to make sure that your colon cancer is not coming back. - Billing Disposition and Condition Condition: STABLE Disposition: Home - Attestation Statements Document Initiated by Yancy: Yes Documenting Scribe: Anna Schwartz Provider For Whom Yancy is Documenting (Include Credential): Gerald Lovelace MD. Scribe Attestation: Anna Bhandari scribed for Gerald Lovelace MD. on 05/11/19 at 0243. Scribe Documentation Reviewed: Yes Provider Attestation: The documentation as recorded by the Anna hernandez accurately reflects the service I personally performed and the decisions made by me, Gerald Lovelace MD. Status of Scribe Document: Viewed
[2019-05-10 22:50] VITALS: BP 164/80
== END 2019-05-10 22:49 | disposition home or self-care (01) ==
LOC: ED 18:59
DX: R10.31 Right lower quadrant pain (principal); I10 Essential (primary) hypertension; K21.9 Gastro-esophageal reflux disease without esophagitis; N40.0 Benign prostatic hyperplasia without lower urinary tract symptoms; Z85.038 Personal history of other malignant neoplasm of large intestine; Z79.899 Other long term (current) drug therapy; Z88.1 Allergy status to other antibiotic agents; Z88.5 Allergy status to narcotic agent; Z88.2 Allergy status to sulfonamides; Z88.8 Allergy status to other drugs, medicaments and biological substances
CPT/HCPCS: 36415; 74176; 80053; 81003; 85025; 93005; 96372; 99283; A9270-GY; J1885

== ENCOUNTER 2022-04-08 14:22 | Inpatient (IN) ==
[2022-04-08 14:42] LABS: ABS Basophils 0.1 10^3/ul (0-0.2); ABS Eosinophils 0.2 10^3/ul (0-0.6); ABS Lymphocytes 2.1 10^3/ul (1.0-4.8); ABS Monocytes 0.3 10^3/ul (0-0.8); ABS Neutrophils 6.1 10^3/ul (1.5-7.7); Eosinophil % 2.2 %; Hematocrit 39 % (42-52); Hemoglobin 13.2 g/dL (14.0-18.0); Lymphocyte % 23.9 %; Mean Corpuscular HGB Conc 34 g/dL (31-36); Mean Corpuscular Hemoglobin 34 pg (27-31); Mean Corpuscular Volume 99 fL (80-94); Mean Platelet Volume 8.8 fL (7.4-10.4); Nucleated Red Blood Cells % 0.1; Platelet Count 160 10^3/uL (150-450); Red Blood Count 3.94 10^6 /uL (4.18-5.48); Red Cell Distribution Width 15 % (10-15); White Blood Count 8.7 10^3/uL (3.5-10.8)
[2022-04-08 15:06] LABS: High Sens Troponin Baseline 102 pg/mL (<20)
[2022-04-08 15:10] LABS: INR 0.97 (0.89-1.11)
[2022-04-08 15:18] LABS: ALT 39 U/L (7-52); Albumin 4.3 g/dL (3.2-5.2); Albumin/Globulin Ratio 1.6 (1-3); Alkaline Phosphatase 38 U/L (35-149); Blood Urea Nitrogen 23 mg/dL (6-24); CO2 Carbon Dioxide 27 mmol/L (22-32); Calcium 9.2 mg/dL (8.6-10.3); Chloride 106 mmol/L (101-111); Globulin 2.7 g/dL (2-4); Glucose 110 mg/dL (70-100); Sodium 139 mmol/L (135-145); eGFR CKD-EPI 61.8 (>60)
[2022-04-08 15:29] LABS: Anion Gap 6 mmol/L (2-11)
[2022-04-08 16:32] LABS: High Sensitivity Troponin 1 Hr 106 pg/mL (<20)
[2022-04-08 16:34] LABS: Potassium Redraw 4.3 mmol/L (3.5-5.0)
[2022-04-08 17:57] LABS: HDL Cholesterol 42.7 mg/dL
[2022-04-08] MEDS: Enoxaparin 40 MG/0.4 ML SYR SUBCUT SCH (18:15)
[2022-04-08 22:12] LABS: Magnesium 2.2 mg/dL (1.9-2.7)
[2022-04-08] MEDS ORDERED: hydrALAZINE 20 mg/ml 1 ML Vial IV IV SLOW PU ONE (22:19)
[2022-04-09 06:18] LABS: Calcium 9.1 mg/dL (8.6-10.3); Potassium 4.2 mmol/L (3.5-5.0); eGFR CKD-EPI 70.8 (>60)
[2022-04-09] MEDS ORDERED: Regadenoson 0.4 MG/5 ML SYRINGE ONE ×2 (08:20→11:32)
[2022-04-09] MEDS ORDERED: Aminophylline 25 MG/ML VIAL ONE ×2 (08:20→11:32)
[2022-04-09] MEDS ORDERED: Perflutren Lipid Microsphere 3 ML VIAL ONE (10:06)
[2022-04-09 11:17] LABS: High Sensitivity Troponin 1 Hr 135 pg/mL (<20)
[2022-04-09] MEDS: Enoxaparin 40 MG/0.4 ML SYR SUBCUT SCH (16:59)
[2022-04-10] MEDS ORDERED: Heparin 2 UNITS/ML IVPREMIX 2,000 UNIT/1,000 ML BAG IV ONE (12:16)
[2022-04-10] MEDS ORDERED: Heparin 1,000 UNIT/ML 10 ml (10,000 UNITS) CATHLAB/DIALYSIS ONE (12:16)
[2022-04-10] MEDS ORDERED: Iohexol 350 (CONTRAST) 100 ML PAK IV ONE (12:16)
[2022-04-10] MEDS ORDERED: nitroGLYCERIN DRIP 25,000 MCG/250 ML BTL ONE (12:16)
[2022-04-10] MEDS ORDERED: fentaNYL 100 mcg/2 ml 50 MCG/ML VIAL ONE (12:16)
[2022-04-10] MEDS ORDERED: Midazolam 5 mg/5 ml VIAL 1 mg/ml 5 ml VIAL (5 mg) ONE (12:16)
[2022-04-10] MEDS ORDERED: Lidocaine 1% VIAL 10 MG/ML VIAL ONE (12:17)
[2022-04-10] MEDS ORDERED: Heparin 2 UNITS/ML IVPREMIX 1,000 UNIT/500 ML BAG IV ONE ×2 (12:18→13:16)
[2022-04-10] MEDS ORDERED: niCARdipine 0.1MG/ML IVPREMIX 20 MG/200 ML BAG IV ONE (12:24)
[2022-04-10] MEDS: Enoxaparin 40 MG/0.4 ML SYR SUBCUT SCH (17:57)
[2022-04-11 09:25] VITALS: BP 137/70
[2022-04-12 09:26] LABS: POC SO2 69 %
[2022-04-14 07:09] LABS: POC SO2 93 %
[2022-04-14 07:09] LABS: POC SO2 92 %
== END 2022-04-11 13:45 | disposition home or self-care (01) | DRG 287 ==
LOC: ED 14:22 → EDHOLD 14:22 → MEDTELE 21:40 → SUATTDRO 04-10 16:28
PROVIDERS: ADMIT Internal Medicine; ATTEND Internal Medicine